=== PATIENT | male | born 1990 | race Caucasian/White ===

== ENCOUNTER → 2018-08-05 | Outpatient (CLI) | payer OTHER | LOC: HYPER 08-04 14:03 | DX: T81.89XD Other complications of procedures, not elsewhere classified, subsequent encounter (principal); K43.9 Ventral hernia without obstruction or gangrene; L05.02 Pilonidal sinus with abscess; Y83.8 Other surgical procedures as the cause of abnormal reaction of the patient, or of later complication, without mention of misadventure at the time of the procedure ==

== ENCOUNTER → 2018-08-19 | Outpatient (CLI) | payer OTHER | LOC: HYPER 07:34 | DX: T81.89XD Other complications of procedures, not elsewhere classified, subsequent encounter (principal); L05.02 Pilonidal sinus with abscess; K43.9 Ventral hernia without obstruction or gangrene; Y83.8 Other surgical procedures as the cause of abnormal reaction of the patient, or of later complication, without mention of misadventure at the time of the procedure ==

== ENCOUNTER → 2018-09-09 | Outpatient (CLI) | payer OTHER | LOC: HYPER 06:53 | DX: T81.89XD Other complications of procedures, not elsewhere classified, subsequent encounter (principal); L05.02 Pilonidal sinus with abscess; K43.9 Ventral hernia without obstruction or gangrene; Y83.8 Other surgical procedures as the cause of abnormal reaction of the patient, or of later complication, without mention of misadventure at the time of the procedure ==

== ENCOUNTER → 2018-10-09 | Outpatient (CLI) | payer OTHER | LOC: HYPER 05:33 | DX: T81.89XD Other complications of procedures, not elsewhere classified, subsequent encounter (principal); L05.02 Pilonidal sinus with abscess; K43.9 Ventral hernia without obstruction or gangrene; Y83.8 Other surgical procedures as the cause of abnormal reaction of the patient, or of later complication, without mention of misadventure at the time of the procedure ==

== ENCOUNTER → 2018-10-30 | Outpatient (CLI) | payer OTHER | LOC: HYPER 06:59 | DX: T81.89XD Other complications of procedures, not elsewhere classified, subsequent encounter (principal); L05.02 Pilonidal sinus with abscess; K43.9 Ventral hernia without obstruction or gangrene; Y83.8 Other surgical procedures as the cause of abnormal reaction of the patient, or of later complication, without mention of misadventure at the time of the procedure ==